=== PATIENT | male | born 1960 | race Caucasian/White ===

== ENCOUNTER 2024-02-23 17:10 | Observation (INO) ==
--- NOTE | 2024-02-23 17:30 | XRay Report ---
XR chest 1V not portable HISTORY: 63 years-old Male Chest pain, nonspecific COMPARISON: None TECHNIQUE: AP view of the chest FINDINGS: Cardiac silhouette is upper limits of normal in size. Large hiatal hernia. No pneumothorax or pleural effusion. The lungs are clear. Bones appear intact. IMPRESSION: 1. No acute process of the chest. 2. Large hiatal hernia. ACT 112: Negative or not required by law. The above report was generated using voice recognition software. It may contain grammatical, syntax o r spelling errors. Electronically signed by: Matthew Crandall M.D. 02/23/2024 5:29 PM
[2024-02-23 17:47] LABS: Basophils # (auto) 0.06 K/uL (0.00-0.20); Basophils % (auto) 0.7 %; Eosinophils # (auto) 0.05 K/uL (0.00-0.50); Eosinophils % (auto) 0.5 %; Hematocrit (blood only) 41.2 % (42.0-52.0); Immature Granulocytes # (auto) 0.05 K/uL (0.01-0.20); Immature Granulocytes % (auto) 0.5 %; Lymphocytes % (auto) 28.2 %; Mean Corpuscular Hemoglobin 30.4 pg (25.0-34.0); Mean Corpuscular Volume 89.6 fL (80.0-100.0); Mean Platelet Volume 9.2 fL (9.4-12.4); Monocytes # (auto) 1.03 K/uL (0.11-0.59); Monocytes % (auto) 11.2 %; Neutrophils # (auto) 5.43 K/uL (1.40-6.50); Neutrophils % (auto) 58.9 %; Platelet Count 280 K/uL (130-400); RDW Coefficient of Variation 13.2 % (11.5-14.5); RDW Standard Deviation 43.4 fL (36.4-46.3); White Blood Count 9.22 K/ul (4.8-10.8)
--- NOTE | 2024-02-23 18:01 | Emergency Department Note ---
Impression & Plan Atrial fibrillation with rapid ventricular response, Chest pain, Hypokalemia ED Provider Note NAME: JORGE ALBERTO VALDEZ AGE: 63 SEX: M : 1960 ARRIVES VIA: Ambulance INFORMANT: Patient ED PROVIDER(S): Chico Anderson DO CHIEF COMPLAINT: syncope HPI: Patient is a 63-year-old male who presents to the ER for a syncopal episode. Patient notes that he drinks several beers earlier today. He was drinking up in a box and then started sweating and he put his head down and he passed out. He denies any headache or change in vision. No chest pain or shortness of breath preceding or following the episode. No belly pain, nausea, vomiting or diarrhea. No dysuria, urgency or frequency. No other exacerbating or remitting factors. Patient notes he has never had this before. provides additional history and notes that the right bundle branch block is old. ADDITIONAL HISTORY OBTAINED: Per HPI Chronic Medical/Social Conditions Affecting Care: Per HPI PAST MEDICAL HISTORY:See Below PAST SURGICAL HISTORY:See Below FAMILY HISTORY:See Below SOCIAL HISTORY:See Below HOME MEDICATIONS:See Below ALLERGIES:See Below VITALS:See Below PHYSICAL EXAMINATION: GENERAL: Sitting up in bed, alert, well appearing, well nourished, no distress, non-toxic, smell of alcohol on breath EYE EXAM: normal conjunctiva. PERRL and EOM's grossly intact. OROPHARYNX: no exudate, no erythema, lips, buccal mucosa, and tongue normal and mucous membranes are moist NECK: supple, no nuchal rigidity, no adenopathy, non-tender LUNGS: Clear to auscultation. Normal chest wall mechanics HEART: Irregular irregular, S1 normal and S2 normal ABDOMEN: abdomen soft, non-tender, normo-active bowel sounds, no masses, no rebound or guarding. BACK: Back is symmetrical on inspection and there is no deformity, no midline tenderness, no CVA tenderness. SKIN: no rashes and no bruising UPPER EXTREMITIES: upper extremities are grossly normal. LOWER EXTREMITIES: No pitting edema. NEURO EXAM: Normal sensorium, cranial nerves II-XII grossly intact, normal speech, no gross weakness of arms, no gross weakness of legs. MEDICAL DECISION MAKING: Patient is a 63-year-old male who presents to the ER for syncopal episode. IV was established medicos obtained. Labs show no significant leukocytosis or anemia. INR unremarkable. BMP with a mild hyponatremia at 132. Mild hypokalemia 3.4. LFTs bilirubin was unremarkable. Troponin was negative. Alcohol mildly elevated at 80. Chest x-ray was clean. There is no trauma. He did have a witnessed syncopal episode. Upon arrival he is found to be slightly hypotensive with systolic pressures in the 90s. He is given 2 L of IV fluids. EKG was consistent with new onset A-fib. Heart rate eventually trended up to the 120s. He was given a dose of Lopressor. Monitor closely and discussed case with the hospitalist for further evaluation management treatment of his syncopal episode in combination with new onset A-fib with RVR. Consults/Care Managements Discussions: Per [facility] Triage Nursing notes reviewed. Limited review of prior medical records performed Vital Signs: reviewed and remarkable for hypotensive and tachycardic Differential diagnosis: Differential diagnosis includes etiologies such as vasovagal event, infection, hypoglycemia, electrolyte abnormalities, cardiac sources, intracerebral event, toxicologic, neurologic, as well as others were entertained. ER treatment provided: See below Diagnostics interpreted by me include EKG and cardiac monitoring as listed below: -Cardiac Monitoring: An order was placed for continuous cardiac monitoring. The monitor shows a rate of 101 with AFIB rhythm. -ECG: A-fib rate of 108 Right bundle branch block QTc 487 T wave inversion in the septal leads -Laboratory studies:Interpreted by me as stated above in MDM and shown below. Imaging studies: Xrays: As interpreted by me: Portable AP upright 1 view of the chest shows no focal infiltrate CTs show: none Procedures:none Critical Care: I have personally spent 32 minutes of critical care time in the direct management of this patient. This includes bedside care, interpretation of diagnostic studies, and testing, discussion with consultants, patient, and family members, and other required patient management activities. This 32 minutes is in excess of all separately billable procedures. Past Med/Surg History Problem List (Updated 02/23/24 @ 21:57 by Chico Anderson DO) Hypokalemia (Acute) Chest pain (Acute) Atrial fibrillation with rapid ventricular response (Acute) Social History Smoking Status: Former smoker Tobacco Type: Cigarettes Feels Safe at Home: Yes Allergies Allergies Allergy/AdvReac Type Severity Reaction Status Date / Time cephalexin [From Keflex] Allergy Hives Unverified 02/23/24 20:18 ciprofloxacin [From Cipro] AdvReac Joint Pain Unverified 02/23/24 20:18 Home Meds Home Medications Medication Instructions Recorded Confirmed aspirin 81 mg tablet,delayed 81 mg PO QAM 02/23/24 02/23/24 release food supplemt, lactose-reduced 1 ea PO QAM 02/23/24 02/23/24 losartan 100 1 tab PO QAM 02/23/24 02/23/24 mg-hydrochlorothiazide 25 mg tablet omeprazole 20 mg capsule,delayed 20 mg PO QAM 02/23/24 02/23/24 release Results & Data (ED) Vital Signs Vital Signs - 24 hr 02/23/24 17:12 02/23/24 17:26 02/23/24 17:26 Temperature 37.4 C Temperature Source Oral Pulse Rate 111 H 112 H Pulse Rate [Apical] Pulse Rate from SpO2 Sensor Pulse Rhythm [Apical] Respiratory Rate 20 16 Respiratory Effort / Characteristics Non-Labored Spontaneous Respiratory Depth Normal Respiratory Pattern Regular Blood Pressure 123/81 Blood Pressure [Right Arm] Blood Pressure Mean 95 Blood Pressure Mean [Right Arm] Blood Pressure Position Semi-fowlers Blood Pressure Position [Right Arm] Pulse Oximetry 98 99 Oxygen Delivery Method Room Air Room Air Room Air Sepsis Recent Fever Within 48 Hours No Sepsis New/Unexplained Change in Mental Status N/A Sepsis Action Taken by Nursing No Action Required 02/23/24 17:26 02/23/24 17:45 02/23/24 17:57 Temperature Temperature Source Pulse Rate 112 H 107 H Pulse Rate [Apical] 113 H Pulse Rate from SpO2 Sensor 109 H Pulse Rhythm [Apical] Irregular Respiratory Rate 16 15 Respiratory Effort / Characteristics Non-Labored Respiratory Depth Normal Respiratory Pattern Blood Pressure 91/68 L Blood Pressure [Right Arm] 99/73 L Blood Pressure Mean 74 Blood Pressure Mean [Right Arm] 81 Blood Pressure Position Blood Pressure Position [Right Arm] Pulse Oximetry 98 98 Oxygen Delivery Method Room Air Sepsis Recent Fever Within 48 Hours Sepsis New/Unexplained Change in Mental Status Sepsis Action Taken by Nursing 02/23/24 18:12 02/23/24 18:15 02/23/24 18:30 Temperature Temperature Source Pulse Rate 111 H 112 H Pulse Rate [Apical] 111 H Pulse Rate from SpO2 Sensor 100 H 103 H Pulse Rhythm [Apical] Irregular Respiratory Rate 12 17 17 Respiratory Effort / Characteristics Non-Labored Spontaneous Respiratory Depth Normal Respiratory Pattern Regular Blood Pressure 111/82 101/75 Blood Pressure [Right Arm] 94/74 L Blood Pressure Mean 88 82 Blood Pressure Mean [Right Arm] 80 Blood Pressure Position Blood Pressure Position [Right Arm] Semi-fowlers Pulse Oximetry 99 98 98 Oxygen Delivery Method Room Air Room Air Sepsis Recent Fever Within 48 Hours Sepsis New/Unexplained Change in Mental Status Sepsis Action Taken by Nursing 02/23/24 18:45 02/23/24 19:00 02/23/24 19:00 Temperature Temperature Source Pulse Rate 104 H 113 H Pulse Rate [Apical] 113 H Pulse Rate from SpO2 Sensor 109 H Pulse Rhythm [Apical] Regular Respiratory Rate 18 17 17 Respiratory Effort / Characteristics Non-Labored Spontaneous Respiratory Depth Normal Respiratory Pattern Regular Blood Pressure 111/75 112/82 Blood Pressure [Right Arm] 112/82 Blood Pressure Mean 85 91 Blood Pressure Mean [Right Arm] 92 Blood Pressure Position Blood Pressure Position [Right Arm] Semi-fowlers Pulse Oximetry 99 98 97 Oxygen Delivery Method Room Air Room Air Room Air Sepsis Recent Fever Within 48 Hours Sepsis New/Unexplained Change in Mental Status Sepsis Action Taken by Nursing 02/23/24 19:30 02/23/24 19:42 02/23/24 20:00 Temperature Temperature Source Pulse Rate 108 H 109 H 108 H Pulse Rate [Apical] Pulse Rate from SpO2 Sensor 113 H 109 H 102 H Pulse Rhythm [Apical] Respiratory Rate 13 27 H 14 Respiratory Effort / Characteristics Respiratory Depth Respiratory Pattern Blood Pressure 102/76 108/80 111/82 Blood Pressure [Right Arm] Blood Pressure Mean 83 89 86 Blood Pressure Mean [Right Arm] Blood Pressure Position Blood Pressure Position [Right Arm] Pulse Oximetry 98 99 99 Oxygen Delivery Method Room Air Room Air Sepsis Recent Fever Within 48 Hours Sepsis New/Unexplained Change in Mental Status Sepsis Action Taken by Nursing 02/23/24 20:58 Temperature Temperature Source Pulse Rate Pulse Rate [Apical] Pulse Rate from SpO2 Sensor Pulse Rhythm [Apical] Respiratory Rate 14 Respiratory Effort / Characteristics Non-Labored Spontaneous Respiratory Depth Normal Respiratory Pattern Regular Blood Pressure Blood Pressure [Right Arm] 112/85 Blood Pressure Mean Blood Pressure Mean [Right Arm] 94 Blood Pressure Position Blood Pressure Position [Right Arm] Semi-fowlers Pulse Oximetry 99 Oxygen Delivery Method Room Air Sepsis Recent Fever Within 48 Hours Sepsis New/Unexplained Change in Mental Status Sepsis Action Taken by Nursing Laboratory Data 02/23/24 17:20 02/23/24 17:20 Lab Results 02/23/24 02/23/24 Range/Units 17:20 18:43 WBC 9.22 (4.8-10.8) K/ul RBC 4.60 L (4.70-6.10) M/uL Hgb 14.0 (14.0-18.0) g/dl Hct 41.2 L (42.0-52.0) % MCV 89.6 (80.0-100.0) fL MCH 30.4 (25.0-34.0) pg MCHC 34.0 (32.0-36.0) g/dL RDW Std Deviation 43.4 (36.4-46.3) fL RDW Coeff of Lizandro 13.2 (11.5-14.5) % Plt Count 280 (130-400) K/uL MPV 9.2 L (9.4-12.4) fL Immature Gran % (Auto) 0.5 % Neut % (Auto) 58.9 % Lymph % (Auto) 28.2 % Hall % (Auto) 11.2 % Eos % (Auto) 0.5 % Baso % (Auto) 0.7 % Neut # (Auto) 5.43 (1.40-6.50) K/uL Lymph # (Auto) 2.60 (1.20-3.40) K/uL Hall # (Auto) 1.03 H (0.11-0.59) K/uL Eos # (Auto) 0.05 (0.00-0.50) K/uL Baso # (Auto) 0.06 (0.00-0.20) K/uL Immature Gran # (Auto) 0.05 (0.01-0.20) K/uL PT 10.2 (9.0-12.0) Seconds INR 0.9 (0.9-1.1) APTT 25 (21-31) Seconds PTT Ratio 0.9 Sodium 132 L (136-145) mmol/L Potassium 3.4 L (3.5-5.1) mmol/L Chloride 98 (98-107) mmol/L Carbon Dioxide 22 (21-32) mmol/L Anion Gap 12 H (3-11) BUN 13 (6-23) mg/dl Creatinine 0.93 (0.6-1.4) mg/dl Est Cr Clr Drug Dosing 89.2 ml/min Est GFR ( Amer) 100.9 ml/min Est GFR (Non-Af Amer) 87.1 ml/min BUN/Creatinine Ratio 14.0 (10-20) Glucose 112 H (70-99(Fasting)) mg/dl Calcium 8.8 (8.6-10.3) mg/dl Magnesium 1.9 (1.7-2.4) mg/dl Total Bilirubin 0.6 (0.2-1.0) mg/dl AST 24 (13-39) U/L ALT 26 (7-52) U/L Alkaline Phosphatase 43 (34-104) U/L Troponin I High Sens 3.8 (0-20) pg/ml Total Protein 6.9 (6.0-8.3) gm/dl Albumin 4.4 (3.4-5.0) gm/dl Globulin 2.5 (2.5-4.0) gm/dl Albumin/Globulin Ratio 1.8 (0.9-2) Ethyl Alcohol mg/dL 79.9 H (<10.0) mg/dl Administered Medications Potassium Chloride/Sodium Chloride (Normal Saline W/20 Meq Kcl) 20 meq in 1,000 mls @ 100 mls/hr IV .Q10H JANEY Stop: 02/24/24 06:29 Last Admin: 02/23/24 21:08 Dose: 100 mls/hr Documented By: MARCELO Magnesium Sulfate/Dextrose (Magnesium Sulfate / D5w) 1 gm in 100 mls @ 50 mls/hr IV ONE ONE Stop: 02/23/24 22:40 Last Admin: 02/23/24 21:10 Dose: 50 mls/hr Documented By: MARCELO Discontinued Medications Sodium Chloride (Nss) 1,000 mls @ 999 mls/hr IV .Q1H1M JANEY Stop: 02/23/24 20:00 Last Admin: 02/23/24 19:11 Dose: 999 mls/hr Documented By: Infusion: 02/23/24 19:10 Dose: Infused Documented By: Admin: 02/23/24 18:09 Dose: 999 mls/hr Documented By: MARCELO Metoprolol Tartrate (Metoprolol Tartrate 1 Mg/Ml Vial) 2.5 mg IV NOW STA Stop: 02/23/24 19:27 Last Admin: 02/23/24 19:40 Dose: 2.5 mg Documented By: DARRELL Potassium Chloride (Potassium Chloride Crtab 20 Meq Tabcr) 40 meq PO NOW STA Stop: 02/23/24 20:13 Last Admin: 02/23/24 21:06 Dose: 40 meq Documented By: MARCELO Imaging Data Radiologist's Impression: Chest X-Ray 02/23/24 17:18 XR chest 1V not portable HISTORY: 63 years-old Male Chest pain, nonspecific COMPARISON: None TECHNIQUE: AP view of the chest FINDINGS: Cardiac silhouette is upper limits of normal in size. Large hiatal hernia. No pneumothorax or pleural effusion. The lungs are clear. Bones appear intact. IMPRESSION: 1. No acute process of the chest. 2. Large hiatal hernia. ACT 112: Negative or not required by law. The above report was generated using voice recognition software. It may contain grammatical, syntax or spelling errors. Electronically signed by: Matthew Crandall M.D. 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
[2024-02-23 18:02] LABS: Albumin Globulin Ratio 1.8 (0.9-2); Albumin Level 4.4 gm/dl (3.4-5.0); Bilirubin,Total 0.6 mg/dl (0.2-1.0); Calcium 8.8 mg/dl (8.6-10.3); Creatinine Clr Calc Pharmacy 89.2 ml/min; Est GFR (African American) 100.9 ml/min; Est GFR (Non-African American) 87.1 ml/min; Globulin 2.5 gm/dl (2.5-4.0); Potassium 3.4 mmol/L (3.5-5.1); Total Protein 6.9 gm/dl (6.0-8.3)
[2024-02-23 18:08] LABS: Troponin I High Sensitivity 3.8 pg/ml (0-20)
[2024-02-23] MEDS: SODIUM CHLORIDE 0.9% 1,000 ML IV SCH (18:09)
[2024-02-23 18:13] LABS: INR 0.9 (0.9-1.1); Partial Thromboplastin Ratio 0.9; Partial Thromboplastin Time 25 Seconds (21-31); Prothrombin Time 10.2 Seconds (9.0-12.0)
[2024-02-23] MEDS: METOPROLOL TARTRATE 1 MG/ML VIAL IV STA (19:40)
[2024-02-23 20:15] LABS: Magnesium 1.9 mg/dl (1.7-2.4)
--- NOTE | 2024-02-23 20:42 | History & Physical Report ---
Date of Service February 23, 2024 Assessment & Plan (1) Syncope: (2) Atrial fibrillation with rapid ventricular response: (3) Dehydration: (4) Hiatal hernia: (5) Hypokalemia: (6) Hypertension: (7) GERD (gastroesophageal reflux disease): (8) Hyponatremia: (9) Alcohol intoxication: Plan Syncopal episode- The patient did have loss of bladder control, but his significant other who was right beside him, reports that he did not have seizure-like activity CT scan head without contrast was negative Accompanying symptoms to be addressed below: Hypokalemia, atrial fibrillation with RVR, mild alcohol intoxication, and mild dehydration. All of which likely contributed to the syncopal episode. Consult neurology Atrial fibrillation with RVR/right bundle branch block/hypertension- The patient will be admitted to telemetry for serial cardiac enzymes, serial EKG's, cardiac rhythm monitoring and a 2-D echocardiogram with Dopplers. Initial troponin was 3.8, with follow-up pending Patient is usually on losartan and HCTZ, both of which will be held He was given Lopressor 2.5 mg IV, Klor-Con 40 mEq p.o., magnesium sulfate 1 g IV, and normal saline + KCl 20 mEq at 100 mL/h x 1 L He was started on heparin drip standard dosing without bolus per protocol He is unaware of any family history of irregular heartbeats, but reports that his father had a stroke at age 62, and maternal grandfather with Consulting cardiology in the a.m. Electrolyte disturbances- Potassium 3.4, to receive Klor-Con 40 mEq p.o. and IV fluids as noted Hyponatremia, with sodium level 132 Holding lisinopril and HCTZ for now, and repeat laboratories in a.m. GERD/hiatal hernia- Typically takes Prilosec daily, which will be formulary changed to pantoprazole 40 mg daily Alcohol intoxication- Alcohol level 79.9 Patient did not appear to be significantly intoxicated Likely contributed to dehydration, electrolyte disturbances, and possible holiday heart with syncopal episode History of Present Illness Chief Complaint: The patient was at the [employer] game, developed significant sweats in the backseat area, put his head down because he felt little dizzy, and then his reported that he passed out including loss of urinary control for about 30 seconds. He was not confused when she rates his head back up again, and was then taken to the emergency department for assessment. Primary Care Provider: Darien Blankenship MD The patient is a 63-year-old male with a past medical history including GERD, hiatal hernia, and hypertension. He presents to the emergency department after a syncopal episode, that was preceded by significant sweats, and loss of bladder control and loss of consciousness for about 30 seconds. He was then brought to the emergency department for assessment. He reports having several beers earlier in the day. In the emergency department he was found to be in atrial fibrillation with RVR in the 110-120 range, received 1 L normal saline and Lopressor 2.5 mg IV, and was then referred for evaluation to the [facility] service for admission. Allergies Allergy/AdvReac Type Severity Reaction Status Date / Time cephalexin [From Keflex] Allergy Hives Unverified 02/23/24 20:18 ciprofloxacin [From Cipro] AdvReac Joint Pain Unverified 02/23/24 20:18 Home Medications Medication Instructions Recorded Confirmed Type aspirin 81 mg tablet,delayed 81 mg PO QAM 02/23/24 02/23/24 History release food supplemt, lactose-reduced 1 ea PO QAM 02/23/24 02/23/24 History losartan 100 1 tab PO QAM 02/23/24 02/23/24 History mg-hydrochlorothiazide 25 mg tablet omeprazole 20 mg capsule,delayed 20 mg PO QAM 02/23/24 02/23/24 History release Past Med/Surg History Problem List (Updated 02/24/24 @ 04:17 by Anam Napier MD) Alcohol intoxication Hyponatremia Dehydration Syncope GERD (gastroesophageal reflux disease) Hypertension Hiatal hernia Hypokalemia (Acute) Chest pain (Acute) Atrial fibrillation with rapid ventricular response (Acute) Social History Smoking Status: Former smoker Tobacco Type: Cigarettes Feels Safe at Home: Yes Review of Systems Review of Systems: The patient denies chest pain, palpitations, shortness of breath, dyspnea on exertion, cough, lower extremity swelling, sore throat, fevers, chills, nausea, vomiting, diarrhea , constipation, abdominal pain, pelvic pain, blood in urine or stool, dysuria, urinary frequency or urgency, rash, abnormal bruising or bleeding, imbalance, focal weakness, numbness or tingling in arms or legs, generalized arthralgias or myalgias, back or neck pain, or night sweats. The review of systems is otherwise negative other than for that already noted above, and at least 10 systems have been reviewed. Physical Exam Physical Exam: The patient is awake, alert and oriented 3, well developed and well nourished, normocephalic and atraumatic, lying in bed and in no acute distress. HEENT--PERRL, EOMI, mucous membranes and oropharynx mildly dry. Neck--supple. No JVD. No bruits. Thyroid normal, trachea midline, no adenopathy. Heart--irregularly irregular. No murmurs, rubs or gallops. Lungs--clear bilaterally, no respiratory distress, no accessory muscle use. Abdomen--normal bowel sounds and soft. Nontender. Nondistended, no hernias or masses, no organomegaly. Extremities--no cyanosis or clubbing. No edema. Dermatologic--normal skin turgor, normal color, no abnormal lymph nodes, no rash. Neurologic--cranial nerves II through XII grossly intact. Rheumatologic--normal range of motion. Psychiatric--normal affect. Results & Data Results & Data Vital Signs (Past 12 Hours) Vital Signs Temp Pulse Pulse Resp BP BP Pulse Ox 02/23/24 20:00 108 H 14 111/82 99 02/23/24 19:42 109 H 27 H 108/80 99 02/23/24 19:30 108 H 13 102/76 98 02/23/24 19:00 113 H 17 112/82 97 02/23/24 19:00 113 H 17 112/82 98 02/23/24 18:45 104 H 18 111/75 99 02/23/24 18:30 112 H 17 101/75 98 02/23/24 18:15 111 H 17 111/82 98 02/23/24 18:12 111 H 12 94/74 L 99 02/23/24 17:57 107 H 02/23/24 17:45 112 H 15 91/68 L 98 02/23/24 17:26 113 H 16 99/73 L 98 02/23/24 17:26 112 H 16 99 02/23/24 17:26 98 02/23/24 17:12 37.4 C 111 H 20 123/81 O2 Del Method 02/23/24 20:00 Room Air 09/21/24 19:42 02/23/24 19:30 Room Air 02/23/24 19:00 Room Air 02/23/24 19:00 Room Air 02/23/24 18:45 Room Air 02/23/24 18:30 02/23/24 18:15 Room Air 02/23/24 18:12 Room Air 02/23/24 17:57 02/23/24 17:45 02/23/24 17:26 Room Air 02/23/24 17:26 Room Air 02/23/24 17:26 Room Air 02/23/24 17:12 Room Air Laboratory Results Laboratory Results WBC 9.22 K/ul (4.8-10.8) 02/23/24 17:20 RBC 4.60 M/uL (4.70-6.10) L 02/23/24 17:20 Hgb 14.0 g/dl (14.0-18.0) 02/23/24 17:20 Hct 41.2 % (42.0-52.0) L 02/23/24 17:20 MCV 89.6 fL (80.0-100.0) 02/23/24 17:20 MCH 30.4 pg (25.0-34.0) 02/23/24 17:20 MCHC 34.0 g/dL (32.0-36.0) 02/23/24 17:20 RDW Std Deviation 43.4 fL (36.4-46.3) 02/23/24 17:20 RDW Coeff of Lizandro 13.2 % (11.5-14.5) 02/23/24 17:20 Plt Count 280 K/uL (130-400) 02/23/24 17:20 MPV 9.2 fL (9.4-12.4) L 02/23/24 17:20 Immature Gran % (Auto) 0.5 % 02/23/24 17:20 Neut % (Auto) 58.9 % 02/23/24 17:20 Lymph % (Auto) 28.2 % 02/23/24 17:20 Ventura % (Auto) 11.2 % 02/23/24 17:20 Eos % (Auto) 0.5 % 02/23/24 17:20 Baso % (Auto) 0.7 % 02/23/24 17:20 Neut # (Auto) 5.43 K/uL (1.40-6.50) 02/23/24 17:20 Lymph # (Auto) 2.60 K/uL (1.20-3.40) 02/23/24 17:20 Ventura # (Auto) 1.03 K/uL (0.11-0.59) H 02/23/24 17:20 Eos # (Auto) 0.05 K/uL (0.00-0.50) 02/23/24 17:20 Baso # (Auto) 0.06 K/uL (0.00-0.20) 02/23/24 17:20 Immature Gran # (Auto) 0.05 K/uL (0.01-0.20) 02/23/24 17:20 PT 10.2 Seconds (9.0-12.0) 02/23/24 17:20 INR 0.9 (0.9-1.1) 02/23/24 17:20 APTT 25 Seconds (21-31) 02/23/24 17:20 PTT Ratio 0.9 02/23/24 17:20 Sodium 132 mmol/L (136-145) L 02/23/24 17:20 Potassium 3.4 mmol/L (3.5-5.1) L 02/23/24 17:20 Chloride 98 mmol/L (98-107) 02/23/24 17:20 Carbon Dioxide 22 mmol/L (21-32) 02/23/24 17:20 Anion Gap 12 (3-11) H 02/23/24 17:20 BUN 13 mg/dl (6-23) 02/23/24 17:20 Creatinine 0.93 mg/dl (0.6-1.4) 02/23/24 17:20 Est Cr Clr Drug Dosing 89.2 ml/min 02/23/24 17:20 Est GFR ( Amer) 100.9 ml/min 02/23/24 17:20 Est GFR (Non-Af Amer) 87.1 ml/min 02/23/24 17:20 BUN/Creatinine Ratio 14.0 (10-20) 02/23/24 17:20 Glucose 112 mg/dl (70-99(Fasting)) H 02/23/24 17:20 Calcium 8.8 mg/dl (8.6-10.3) 02/23/24 17:20 Magnesium 1.9 mg/dl (1.7-2.4) 02/23/24 17:20 Total Bilirubin 0.6 mg/dl (0.2-1.0) 02/23/24 17:20 AST 24 U/L (13-39) 02/23/24 17:20 ALT 26 U/L (7-52) 02/23/24 17:20 Alkaline Phosphatase 43 U/L (34-104) 02/23/24 17:20 Troponin I High Sens 3.8 pg/ml (0-20) 02/23/24 17:20 Total Protein 6.9 gm/dl (6.0-8.3) 02/23/24 17:20 Albumin 4.4 gm/dl (3.4-5.0) 02/23/24 17:20 Globulin 2.5 gm/dl (2.5-4.0) 02/23/24 17:20 Albumin/Globulin Ratio 1.8 (0.9-2) 02/23/24 17:20 Ethyl Alcohol mg/dL 79.9 mg/dl (<10.0) H 02/23/24 18:43 Impressions Chest X-Ray 02/23/24 17:18 XR chest 1V not portable HISTORY: 63 years-old Male Chest pain, nonspecific COMPARISON: None TECHNIQUE: AP view of the chest FINDINGS: Cardiac silhouette is upper limits of normal in size. Large hiatal hernia. No pneumothorax or pleural effusion. The lungs are clear. Bones appear intact. IMPRESSION: 1. No acute process of the chest. 2. Large hiatal hernia. ACT 112: Negative or not required by law. The above report was generated using voice recognition software. It may contain grammatical, syntax or spelling errors. Electronically signed by: Matthew Crandall M.D. 02/23/2024 5:[address] 02/23/24 20:18 Exam(s): CT HEAD Without Contrast EXAM: CT Head Without Intravenous Contrast CLINICAL HISTORY: Reason for exam: syncope. TECHNIQUE: Axial computed tomography images of the head/brain without intravenous contrast. CTDI is 37.49 mGy and DLP is 625.8 mGy-cm. Automated exposure control was utilized for the study. A dose lowering technique was utilized adhering to the principles of ALARA. COMPARISON: No relevant prior studies available. FINDINGS: Brain: Unremarkable. No hemorrhage. No significant white matter disease. No edema. Ventricles: Unremarkable. No ventriculomegaly. Bones/joints: Unremarkable. No acute fracture. Soft tissues: Mild soft tissue swelling over the left superior scalp. Sinuses: Unremarkable as visualized. No acute sinusitis. Mastoid air cells: Unremarkable as visualized. No mastoid effusion. IMPRESSION: No evidence of acute intracranial pathology. Electronically signed by: Maci Mejía MD 02/23/24 22:09 PM Code Status & VTE Plan Code Status Full code VTE Prophylaxis Plan VTE Prophylaxis will be ordered: Yes PG Care Time/CCT Total # of Minutes Spent Total Time Spent with Patient: Total time spent is greater than 50% in coordination of care (as documented) at patient's floor/unit and/or counseling patient: Coding Level of Care Code 51708 INT INP/OBS CARE 3/75MIN Diagnoses Syncope R55 Atrial fibrillation with rapid ventricular response I48.91 Dehydration E86.0 Hiatal hernia K44.9 Hypokalemia E87.6 Hypertension I10 GERD (gastroesophageal reflux disease) K21.9 Hyponatremia E87.1 Alcohol intoxication F10.929
[2024-02-23] MEDS: POTASSIUM CHLORIDE CRTAB 20 MEQ TABCR PO STA (21:06)
[2024-02-23] MEDS: NSS + 20MEQ KCL 20 MEQ/1,000 ML BAG IV SCH (21:08)
[2024-02-23] MEDS: MAGNESIUM SULFATE / D5W 1 GM/100 ML BAG IV ONE (21:10)
--- NOTE | 2024-02-23 22:10 | CT Scan Report ---
Exam(s): CT HEAD Without Contrast EXAM: CT Head Without Intravenous Contrast CLINICAL HISTORY: Reason for exam: syncope. TECHNIQUE: Axial computed tomography images of the head/brain without intravenous contrast. CTDI is 37.49 mGy and DLP is 625.8 mGy-cm. Automated exposure control was utilized for the study. A dose lowering technique was utilized adhering to the principles of ALARA. COMPARISON: No relevant prior studies available. FINDINGS: Brain: Unremarkable. No hemorrhage. No significant white matter disease. No edema. Ventricles: Unremarkable. No ventriculomegaly. Bones/joints: Unremarkable. No acute fracture. Soft tissues: Mild soft tissue swelling over the left superior scalp. Sinuses: Unremarkable as visualized. No acute sinusitis. Mastoid air cells: Unremarkable as visualized. No mastoid effusion. IMPRESSION: No evidence of acute intracranial pathology. Electronically signed by: Maci Mejía MD 02/23/24 22:09 PM
[2024-02-23] MEDS: Heparin IV Adult Wt-Based Standard *NO* INITIAL Bolus Protocol IV STA (23:52)
[2024-02-23] MEDS: HEPARIN SODIUM/DEXTROSE 25,000 UNITS/500 ML BAG IV SCH (23:52)
[2024-02-24] MEDS ORDERED: ACETAMINOPHEN 325 MG TAB PO PRN (01:40)
[2024-02-24] MEDS ORDERED: ONDANSETRON INJ 2 MG/ML 2 ML VIAL IV PRN (01:40)
--- NOTE | 2024-02-24 04:32 | Billing Data ---
Date of Service February 24, 2024 Coding Level of Care Code 29982 INT INP/OBS CARE
[2024-02-24 05:53] LABS: Basophils # (auto) 0.04 K/uL (0.00-0.20); Basophils % (auto) 0.5 %; Eosinophils # (auto) 0.02 K/uL (0.00-0.50); Eosinophils % (auto) 0.3 %; Hematocrit (blood only) 36.4 % (42.0-52.0); Hemoglobin 12.8 g/dl (14.0-18.0); Immature Granulocytes # (auto) 0.05 K/uL (0.01-0.20); Immature Granulocytes % (auto) 0.6 %; Lymphocytes # (auto) 1.43 K/uL (1.20-3.40); Lymphocytes % (auto) 18.1 %; Mean Corpuscular Hgb Conc 35.2 g/dL (32.0-36.0); Mean Corpuscular Volume 88.1 fL (80.0-100.0); Mean Platelet Volume 9.4 fL (9.4-12.4); Monocytes # (auto) 0.88 K/uL (0.11-0.59); Monocytes % (auto) 11.2 %; Neutrophils # (auto) 5.46 K/uL (1.40-6.50); Neutrophils % (auto) 69.3 %; Platelet Count 238 K/uL (130-400); RDW Coefficient of Variation 13.2 % (11.5-14.5); RDW Standard Deviation 42.4 fL (36.4-46.3); Red Blood Count 4.13 M/uL (4.70-6.10); White Blood Count 7.88 K/ul (4.8-10.8)
[2024-02-24 05:56] LABS: Albumin Level 3.7 gm/dl (3.4-5.0); BUN Creatinine Ratio 16.4 (10-20); Calcium 8.3 mg/dl (8.6-10.3); Creatinine Clr Calc Pharmacy 123.9 ml/min; Est GFR (African American) 118.5 ml/min; Est GFR (Non-African American) 102.3 ml/min; Phosphorus 2.4 mg/dl (2.5-4.9); Potassium 3.9 mmol/L (3.5-5.1)
[2024-02-24 06:17] LABS: ANTI-Xa, UFH(UnfractionatedHep 0.38 IU/ml (0.3-0.7)
--- NOTE | 2024-02-24 08:18 | Neurology Consultation ---
Date of Consultation February 24, 2024 Assessment & Plan (1) Alcohol intoxication: History of Present Illness Attending Physician: Jayce Crowder History of Present Illness pt this morning feeling well. CT head negative. trending troponin. pt with hypotensive events in setting of alcohol intoxication. no focal weakness. wants to go home. admission HPI: The patient was at the [facility] football game, developed significant sweats in the backseat area, put his head down because he felt little dizzy, and then his reported that he passed out including loss of urinary control for about 30 seconds. He was not confused when she rates his head back up again, and was then taken to the emergency department for assessment. Primary Care Provider: Darien Blankenship MD The patient is a 63-year-old male with a past medical history including GERD, hiatal hernia, and hypertension. He presents to the emergency department after a syncopal episode, that was preceded by significant sweats, and loss of bladder control and loss of consciousness for about 30 seconds. He was then brought to the emergency department for assessment. He reports having several beers earlier in the day. In the emergency department he was found to be in atrial fibrillation with RVR in the 110-120 range, received 1 L normal saline and Lopressor 2.5 mg IV, and [facility] then [facility]. Allergies Allergy/AdvReac Type Severity Reaction Status Date / Time cephalexin [From Keflex] Allergy Hives Unverified 02/23/24 20:18 ciprofloxacin [From Cipro] AdvReac Joint Pain Unverified 02/23/24 20:18 Home Medications Medication Instructions Recorded Confirmed Type aspirin 81 mg tablet,delayed 81 mg PO QAM 02/23/24 02/23/24 History release food supplemt, lactose-reduced 1 ea PO QAM 02/23/24 02/23/24 History losartan 100 1 tab PO QAM 02/23/24 02/23/24 History mg-hydrochlorothiazide 25 mg tablet omeprazole 20 mg capsule,delayed 20 mg PO QAM 02/23/24 02/23/24 History release Patient History Social History Smoking Status: Current some day smoker Tobacco Type: Cigars Second Hand Exposure: No; Do You Dip or Chew Tobacco: No; Hx Alcohol Use: Yes Alcohol type: beer Hx Substance Use: No Preferred Language: Indonesian Communication Ability: Effective Casting Director Required: No Beliefs That Will Affect Care: None Current Living Situation: Spouse Current Living Situation Comment: lives in a house with Feels Safe at Home: Yes Assistive Devices: Glasses Exam (Neuro) Physical Exam: HEENT: normocephalic grossly Neuro: Mental: AOx4, fluent speech, normal comprehension, no apraxia, no L/R confusion, no neglect CN: PERRL, Full EOM, symmetric face, midline T/U/P, grossly full ROM neck Motor: No abnormal movements, normal tone, 5/5 t/o bilaterally Coord: intact FNT b/l DTR: 2+ sym b/l Impression:63 yo male with likely cardiogenic syncopal event in setting of hypotension, alcohol intoxication, dehydration. Recommendations: no further work up needed from neurology. not much to add from neurology. finish cardiac work up. will sign off. call again if new question. Chart reviewed I have spent more than 50% educating patient about potential diagnosis and neurological evaluation and coordinating care with patient's treatment team. Total time spent (including chart review and coordination of care): 45 min (this includes chart review). Results & Data Vital Signs (Past 12 Hours) Vital Signs Temp Pulse Pulse Resp BP BP Pulse Ox 02/24/24 07:41 108 H 02/24/24 07:29 36.9 C 110 H 18 121/86 99 02/24/24 04:12 113 H 02/24/24 04:00 02/24/24 04:00 36.8 C 107 H 16 117/75 99 02/23/24 22:00 113 H 18 115/95 97 02/23/24 21:52 107 H 123/67 02/23/24 21:46 117 H 02/23/24 21:30 117 H 17 128/87 02/23/24 21:00 22 108/88 98 02/23/24 20:58 14 112/85 99 02/23/24 20:45 103 H 19 99 O2 Del Method 02/24/24 07:41 02/24/24 07:29 Room Air 02/24/24 04:12 02/24/24 04:00 Room Air 02/24/24 04:00 Room Air 02/23/24 22:00 Room Air 02/23/24 21:52 02/23/24 21:46 02/23/24 21:30 02/23/24 21:00 02/23/24 20:58 Room Air 02/23/24 20:45 PG Care Time/CCT Total # of Minutes Spent Total Time Spent with Patient: Total time spent is greater than 50% in coordination of care (as documented) at patient's floor/unit and/or counseling patient: Coding Level of Care Code 26080 IN/OBS CONSULT LVL 3,45M Diagnoses Alcoholic intoxication without complication F10.920 Complication of substance-induced condition: uncomplicated (1) Alcohol intoxication Complication of substance-induced condition: uncomplicated Qualified Code(s): F10.920 - Alcohol use, unspecified with intoxication, uncomplicated
[2024-02-24] MEDS: ASPIRIN 81 MG ECTAB PO SCH (08:22)
[2024-02-24] MEDS: METOPROLOL TARTRATE 1 MG/ML VIAL IV STA (10:50)
[2024-02-24] MEDS: METOPROLOL TARTRATE 50 MG TAB PO SCH ×2 (11:00→11:42)
--- NOTE | 2024-02-24 11:17 | XCELERA ---
[id number]
--- NOTE | 2024-02-24 12:20 | Electrocardiogram Report ---
Test Reason : Blood Pressure : */* mmHG Vent. Rate : 108 BPM Atrial Rate : * BPM P-R Int : * ms QRS Dur : 148 ms QT Int : 364 ms P-R-T Axes : * 227 -9 degrees QTcB Int : 487 ms Atrial fibrillation with rapid ventricular response Right bundle branch block Inferior infarct , age undetermined Abnormal ECG No previous ECGs available Confirmed by Bony Gillis ([id number]) on 02/24/2024 12:20:04 PM Referred By: REFERRED SELF Confirmed By: Bony Gillis
--- NOTE | 2024-02-24 12:25 | Electrocardiogram Report ---
Test Reason : Blood Pressure : */* mmHG Vent. Rate : 112 BPM Atrial Rate : 97 BPM P-R Int : * ms QRS Dur : 130 ms QT Int : 314 ms P-R-T Axes : * 258 -19 degrees QTcB Int : 428 ms Atrial fibrillation with rapid ventricular response Right bundle branch block Inferior infarct (cited on or before 23-Feb-2024) Abnormal ECG When compared with ECG of 23-Feb-2024 17:13, (unconfirmed) No significant change was found Confirmed by Bony Gillis ([id number]) on 02/24/2024 12:25:22 PM Referred By: REFERRED SELF Confirmed By: Bony Gillis
--- NOTE | 2024-02-24 12:37 | Cardiology Consultation ---
Date of Consultation February 24, 2024 Assessment & Plan (1) Atrial fibrillation with rapid ventricular response: -May be secondary to his alcohol intoxication. -Agree with intravenous heparin for now. -Would add intravenous and oral beta-blockers. -[id number] score is 1 based on hypertension. No long-term anticoagulation indicated currently. -Will require long-term anticoagulation when he reaches the age of 65. -Suggests he establishes cardiac care closer to home. -May need to long-term event monitor versus a loop recorder. -Fortunately his high-sensitivity troponins are normal despite a rapid ventricular response. (2) Syncope: -Likely vasovagal as he had preceding diaphoresis. -No heart block seen on EKG or telemetry. -No further evaluation necessary at this time. History of Present Illness Attending Physician: Jayce Crowder History of Present Illness Mr. Dukes is a 63-year-old male admitted yesterday with new onset atrial fibrillation and a rapid ventricular response. This consultation was ordered to assist in his cardiac management. The patient was in his usual state of health until yesterday when tailgating at [facility]. The patient had the abrupt onset of diaphoresis and then suffered a syncopal episode. There was loss of urinary continence. 911 was called and the patient was found to be in atrial fibrillation with a rapid ventricular response. He was transported to the hospital for further care. At no time has the patient experienced palpitations. He has no prior history of atrial fibrillation. The patient does admit to drinking 5 beers during the tailgate event. His potassium was low on initial presentation at 3.4. 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 He has never experienced exertional chest pain or limiting dyspnea. He further denies syncope, presyncope, PND, orthopnea, lower extremity edema, and claudication. Currently, patient is resting comfortably in bed without complaints. Past medical and surgical history 1. Hypertension 2. Right bundle branch block 3. GERD 4. Hiatal hernia Social history and lives with his in the [place] area. Works in a [email or web address] company No tobacco Social alcohol Family history Mother at 87 from renal carcinoma Father at 92 from "old age." No early coronary artery disease Review of systems A 10 point review of systems was undertaken and negative except that scribed above. Allergies Allergy/AdvReac Type Severity Reaction Status Date / Time cephalexin [From Keflex] Allergy Hives Unverified 02/23/24 20:18 ciprofloxacin [From Cipro] AdvReac Joint Pain Unverified 02/23/24 20:18 Home Medications Medication Instructions Recorded Confirmed Type aspirin 81 mg tablet,delayed 81 mg PO QAM 02/23/24 02/23/24 History release food supplemt, lactose-reduced 1 ea PO QAM 02/23/24 02/23/24 History losartan 100 1 tab PO QAM 02/23/24 02/23/24 History mg-hydrochlorothiazide 25 mg tablet omeprazole 20 mg capsule,delayed 20 mg PO QAM 02/23/24 02/23/24 History release Patient History Social History Smoking Status: Current some day smoker Tobacco Type: Cigars Second Hand Exposure: No; Do You Dip or Chew Tobacco: No; Hx Alcohol Use: Yes Alcohol type: beer Hx Substance Use: No Preferred Language: Chinese Communication Ability: Effective Operations Vocational Instructor Required: No Beliefs That Will Affect Care: None Current Living Situation: Spouse Current Living Situation Comment: lives in a house with Feels Safe at Home: Yes Assistive Devices: Glasses Results & Data Vital Signs (Past 12 Hours) Vital Signs Temp Pulse Pulse Pulse Resp BP BP 02/24/24 11:13 104 H 139/82 02/24/24 10:50 115 H 127/86 02/24/24 10:48 36.7 C 115 H 16 127/86 02/24/24 07:41 108 H 02/24/24 07:29 36.9 C 110 H 18 121/86 02/24/24 04:12 113 H 02/24/24 04:00 02/24/24 04:00 36.8 C 107 H 16 117/75 Pulse Ox O2 Del Method 02/24/24 11:13 02/24/24 10:50 02/24/24 10:48 97 Room Air 02/24/24 07:41 02/24/24 07:29 99 Room Air 02/24/24 04:12 02/24/24 04:00 Room Air 02/24/24 04:00 99 Room Air Laboratory Results Potassium level on presentation was 3.4 with a follow-up value of 3.9. Initial high-sensitivity troponin was 3.8 with a follow-up value of 3.0. Alcohol level was 79.9 (normal less than 10). Diagnostic Findings Echocardiogram notes normal left ventricular systolic function with ejection fraction of 55 to 60%. There was no valvular pathology. EKG notes atrial fibrillation with a rapid ventricular response and incomplete right bundle branch block. Chest x-ray shows no acute disease but evidence of a large hiatal hernia. PG Care Time/CCT Total # of Minutes Spent Total Time Spent with Patient: Total time spent is greater than 50% in coordination of care (as documented) at patient's floor/unit and/or counseling patient: Coding Level of Care Code 10862 IN/OBS CONSULT LVL 4,60M Diagnoses Atrial fibrillation with rapid ventricular response I48.91 Syncope R55
--- NOTE | 2024-02-24 22:50 | Hospitalist Progress Note ---
Date of Service February 24, 2024 Assessment & Plan (1) Syncope: (2) Atrial fibrillation with rapid ventricular response: (3) Dehydration: (4) Hiatal hernia: (5) Hypokalemia: (6) Hypertension: (7) GERD (gastroesophageal reflux disease): (8) Hyponatremia: (9) Alcohol intoxication: Plan Syncopal episode- The patient did have loss of bladder control, but his significant other who was right beside him, reports that he did not have seizure-like activity CT scan head without contrast was negative Accompanying symptoms to be addressed below: Hypokalemia, atrial fibrillation with RVR, mild alcohol intoxication, and mild dehydration. All of which likely contributed to the syncopal episode. Consult neurology Atrial fibrillation with RVR/right bundle branch block/hypertension- The patient will be admitted to telemetry for serial cardiac enzymes, serial EKG's, cardiac rhythm monitoring and a 2-D echocardiogram with Dopplers. Initial troponin was 3.8, with follow-up 3.o Patient is usually on losartan and HCTZ, both of which will be held Now on lopressor 50 mg PO q6h. He was started on heparin drip standard dosing without bolus per protocol He is unaware of any family history of irregular heartbeats, but reports that his father had a stroke at age 62, and maternal grandfather with Possible discharge in AM if HR is rate controlled. Electrolyte disturbances- Potassium 3.4, to receive Klor-Con 40 mEq p.o. and IV fluids as noted Hyponatremia, with sodium level 132 Holding lisinopril and HCTZ for now Potassium now 3.9. GERD/hiatal hernia- Typically takes Prilosec daily, which will be formulary changed to pantoprazole 40 mg daily Alcohol intoxication- Alcohol level 79.9 Patient did not appear to be significantly intoxicated Likely contributed to dehydration, electrolyte disturbances, and possible holiday heart with syncopal episode Admission and Anticipated Discharge Date Admission Date: February 23, 2024 Subjective Patient reports doing well. He has no new complaints. Hoping to be discharged soon. Review of Systems Review of Systems: All systems reviewed & are unremarkable except as noted in HPI & below Physical Exam Physical Exam: The patient is awake, alert and oriented 3 HEENT--PERRL, EOMI, mucous membranes and oropharynx mildly dry. Neck--supple. No JVD. No bruits. Thyroid normal, trachea midline, no adenopathy. Heart--irregularly irregular. No murmurs, rubs or gallops. Lungs--clear bilaterally, no respiratory distress, no accessory muscle use. Abdomen--normal bowel sounds and soft. Nontender. Nondistended, no hernias or masses, no organomegaly. Extremities--no cyanosis or clubbing. No edema. Results & Data Results & Data Vital Signs (Past 12 Hours) Vital Signs Temp Pulse Pulse Resp BP BP BP 02/24/24 19:55 37.2 C 98 H 18 132/86 02/24/24 15:20 36.9 C 107 H 18 131/80 02/24/24 14:05 97 H 02/24/24 11:13 104 H 139/82 Pulse Ox O2 Del Method 02/24/24 19:55 98 Room Air 02/24/24 15:20 97 Room Air 02/24/24 14:05 02/24/24 11:13 PG Care Time/CCT Total # of Minutes Spent Total Time Spent with Patient: Total time spent is greater than 50% in coordination of care (as documented) at patient's floor/unit and/or counseling patient: Coding Level of Care Code 80818 SUB INP/OBS CARE 2/35MIN Diagnoses Syncope R55 Atrial fibrillation with rapid ventricular response I48.91 Dehydration E86.0 Hiatal hernia K44.9 Hypokalemia E87.6 Hypertension I10 GERD (gastroesophageal reflux disease) K21.9 Hyponatremia E87.1 Alcoholic intoxication without complication F10.920 Complication of substance-induced condition: uncomplicated (9) Alcohol intoxication Complication of substance-induced condition: uncomplicated Qualified Code(s): F10.920 - Alcohol use, unspecified with intoxication, uncomplicated
[2024-02-25 02:42] VITALS: RESP 18
[2024-02-25 06:57] LABS: Basophils # (auto) 0.06 K/uL (0.00-0.20); Basophils % (auto) 0.9 %; Eosinophils # (auto) 0.03 K/uL (0.00-0.50); Eosinophils % (auto) 0.4 %; Hemoglobin 13.4 g/dl (14.0-18.0); Immature Granulocytes # (auto) 0.03 K/uL (0.01-0.20); Immature Granulocytes % (auto) 0.4 %; Lymphocytes # (auto) 1.97 K/uL (1.20-3.40); Lymphocytes % (auto) 29.4 %; Mean Corpuscular Hemoglobin 31.1 pg (25.0-34.0); Mean Corpuscular Hgb Conc 35.3 g/dL (32.0-36.0); Mean Corpuscular Volume 88.2 fL (80.0-100.0); Monocytes % (auto) 10.4 %; Neutrophils # (auto) 3.92 K/uL (1.40-6.50); Neutrophils % (auto) 58.5 %; Platelet Count 238 K/uL (130-400); RDW Coefficient of Variation 13.3 % (11.5-14.5); RDW Standard Deviation 43.5 fL (36.4-46.3); Red Blood Count 4.31 M/uL (4.70-6.10); White Blood Count 6.71 K/ul (4.8-10.8)
[2024-02-25 07:18] LABS: Albumin Level 3.8 gm/dl (3.4-5.0); BUN Creatinine Ratio 15.9 (10-20); Calcium 8.8 mg/dl (8.6-10.3); Creatinine Clr Calc Pharmacy 131.7 ml/min; Est GFR (African American) 121.6 ml/min; Est GFR (Non-African American) 104.9 ml/min; Phosphorus 2.3 mg/dl (2.5-4.9); Potassium 3.5 mmol/L (3.5-5.1)
[2024-02-25 07:43] LABS: ANTI-Xa, LMWH(Low Molecular Wt 0.62 IU/ML (< 0.10)
[2024-02-25] MEDS: METOPROLOL TARTRATE 50 MG TAB PO SCH (08:13)
[2024-02-25] MEDS: POTASSIUM CHLORIDE CRTAB 20 MEQ TABCR PO STA (11:26)
[2024-02-25 15:21] VITALS: TEMP 99.3; O2SAT 99
--- NOTE | 2024-02-25 15:22 | Cardiology Progress Note ---
Date of Service February 25, 2024 Assessment & Plan (1) Atrial fibrillation with rapid ventricular response: (2) Syncope: (3) Hypertension: Plan ASSESSMENT/PLAN: 1. Atrial fibrillation: Persistent. Asymptomatic. Heart rate improved with metoprolol 50 mg p.o. 4 times daily. Discussed the diagnosis in detail. Discussed treatment options such as rate control, rhythm control, cardioversion, ablation. Recommended transesophageal echo and cardioversion which should be a vailable tomorrow as he ate today. He plans on discussing with his PCP as he was also considering being discharged home with close follow-up. Recommend anticoagulation for stroke risk reduction. Recommend Eliquis 5 mg twice daily. Recommended that he avoid alcohol as alcohol could precipitate A-fib. There is a chance he may spontaneously convert but the true onset of the A-fib is difficult to know as he is asymptomatic. 2. Syncope: Etiology uncertain. Could have been related to A-fib with RVR. Recommended that he not drive. Recommend further monitoring such as a 30-day event monitor in the outpatient setting. He plans on following up with his PCP and a local physical security specialist in this regard. 3. Hypertension: Blood pressure has been reasonably controlled while here. Continue beta-yan as above. 4. Disposition: He plans on discussing further with his PCP. I was later notified by nursing staff and Dr. Machuca of the primary hospitalist service that he decided to go home. He assured me that if he left today, that he would not drive. Recommend very close follow-up with his PCP and a local physical security specialist. If he has not had a TSH done recently, recommend checking a TSH. Plan of care discussed with Dr. [facility] service. Admission and Anticipated Discharge Date Admission Date: February 23, 2024 Subjective Patient was seen earlier this afternoon. Initial consultation was performed yesterday by Dr. Gillis. His and 2 friends were present at the bedside. He denies palpitations. He has not had any further syncope or near syncope. He denies chest pain, shortness of breath, edema, melena, hematochezia, or chhaya turia. He inquired about cardioversion. He also asked if he could go home and be followed up closely with his PCP who has been in contact with him several times throughout the day today. Physical Exam Physical Exam: Gen.: No acute distress. Alert and oriented. HEENT: Anicteric sclera. Neck: No JVD. Cardiac: Irregularly irregular. Normal S1-S2. No murmurs, rubs, or gallops. Pulmonary: Clear to auscultation bilaterally without wheezes, rales, or rhonchi. Abdomen: Soft, nontender, nondistended, with normoactive bowel sounds. No bruits noted. Extremities: 2+ radial pulses bilaterally. 2+ posterior tibialis pulses bilaterally. No edema or cyanosis. Right lower extremity varicose veins. Psychiatric: Affect appears appropriate. Results & Data Vital Signs (Past 12 Hours) Vital Signs Temp Pulse Pulse Resp BP Pulse Ox O2 Del Method 02/25/24 14:51 111 H 02/25/24 10:56 36.7 C 91 H 18 116/79 98 Room Air 02/25/24 07:36 82 02/25/24 07:33 36.9 C 90 18 121/88 99 Room Air Laboratory Results Laboratory Results - last 24 hr 02/25/24 06:00 WBC 6.71 RBC 4.31 L Hgb 13.4 L Hct 38.0 L MCV 88.2 MCH 31.1 MCHC 35.3 RDW Std Deviation 43.5 RDW Coeff of Lizandro 13.3 Plt Count 238 MPV 10.0 Immature Gran % (Auto) 0.4 Neut % (Auto) 58.5 Lymph % (Auto) 29.4 Cuming % (Auto) 10.4 Eos % (Auto) 0.4 Baso % (Auto) 0.9 Neut # (Auto) 3.92 Lymph # (Auto) 1.97 Cuming # (Auto) 0.70 H Eos # (Auto) 0.03 Baso # (Auto) 0.06 Immature Gran # (Auto) 0.03 Heparin Anti-Xa, LM Wt 0.62 Sodium 139 Potassium 3.5 Chloride 106 Carbon Dioxide 26 Anion Gap 7 BUN 10 Creatinine 0.63 Est Cr Clr Drug Dosing 131.7 Est GFR ( Amer) 121.6 Est GFR (Non-Af Amer) 104.9 BUN/Creatinine Ratio 15.9 Glucose 91 Calcium 8.8 Phosphorus 2.3 L Magnesium 2.0 Albumin 3.8 Diagnostic Findings Telemetry personally reviewed: Atrial fibrillation with improved heart rate but still rapid ventricular response at times. Current heart rate on telemetry 90s to low 100s. Labs reviewed and notable for normal magnesium, normal transaminase levels, mild anemia, normal potassium, normal renal function, normal high-sensitivity troponin. Echo 02/24/2024 report reviewed: Normal LV size, wall motion, systolic function. EF 60 to 65%. No significant valvular abnormalities. ECG personally reviewed 02/25/2024: A-fib 92 bpm. RBBB. Possible inferior infarct. Medications Administered Current Inpatient Medications Acetaminophen (Acetaminophen 325 Mg Tab) 650 mg PO Q4H PRN PRN Reason: Pain or Fever Stop: 03/25/24 01:39 Aspirin (Aspirin 81 Mg Ectab) 81 mg PO QAM [facility] Stop: 03/25/24 08:59 Last Admin: 02/25/24 08:12 Dose: 81 mg Heparin Sodium/Dextrose (Heparin Sodium/Dextrose) 25,000 units in 500 mls @ 29 mls/hr IV .[id number] [facility]; Protocol Stop: 03/24/24 22:59 Last Admin: 02/25/24 08:56 Dose: 1,450 units/hr, 29 mls/hr Metoprolol Tartrate (Metoprolol Tartrate 50 Mg Tab) 50 mg PO QID [facility] Stop: 03/26/24 08:59 Last Admin: 02/25/24 12:58 Dose: 50 mg Ondansetron HCl (Ondansetron Inj 2 Mg/Ml 2 Ml Vial) 4 mg IV Q6H PRN PRN Reason: Nausea Stop: 03/25/24 01:39 PG Care Time/CCT Total # of Minutes Spent Total Time Spent with Patient: Total time spent is greater than 50% in coordination of care (as documented) at patient's floor/unit and/or counseling patient: Coding Level of Care Code 61755 SUB INP/OBS CARE 3/50MIN Diagnoses Atrial fibrillation with rapid ventricular response I48.91 Syncope R55 Hypertension I10
[2024-02-25] MEDS: APIXABAN 5 MG TABLET PO ONE (15:59)
--- NOTE | 2024-02-25 16:43 | Discharge Summary ---
Discharge Summary Date of Service February 25, 2024 Principal Dx & Hospital Course #1 = Principal Diagnosis (1) Syncope: The patient did have loss of bladder control, but his significant other reports that he did not have seizure-like activity CT scan head without contrast was negative With Hypokalemia, atrial fibrillation with RVR, mild alcohol intoxication, and mild dehydration. All of which likely contributed to the syncopal episode. Consult neurology appreciated-thought was cardiogenic syncope, no further neurological workup needed no events on tele other than rapid afib as below, rates improved after starting metoprolol BPs stable Advised no driving until further evaluation and treatment of Afib (2) Atrial fibrillation with rapid ventricular response: Atrial fibrillation with RVR/right bundle branch block-rates initially in the 120s and improved to low 100s with addition of metoprolol tartrate 50mg po qid and was given IVFs. BPs stable Initial troponin was 3.8, with follow-up 3.0, no ischemic changes on ECG Patient is usually on losartan and HCTZ-HOLD now with starting metoprolol He was started on heparin drip and converted to Eliquis 5mg po bid on discharge ECHO here normal Was given IVFs and K+ replacement Seen by Cardiology who recommended MILI and cardioversion-pt [place]. Stable for discharge with rate control strategy with metoprolol tartrate 100mg po bid and Eliquis 5mg po bid Needs close f/u with Cardiology Advised avoidance of EtOH bingeing (3) Hiatal hernia: large, seen on CXR continue PPI (4) Hypertension: BPs stable with metoprolol alone HOLD losartan-HCTZ Can dc ASA 81mg daily which he was on for primary prevention since starting ELiquis (5) Hyponatremia: sodium level 132 on admission, related to HCTZ and/or EtOH use,dehydration given IVFs and held HCTZ, Na+ normal on day of discharge at 139 HOLD HCTZ on discharge f/u with PCP (6) Alcohol intoxication: Alcohol level 79.9, had 5 beers prior to admission at a [employer] football game Patient did not appear to be significantly intoxicated Likely contributed to dehydration, electrolyte disturbances, and possible holiday heart with syncopal episode Plan DVT prophylaxis-heparin gtt Dispo-stable for dc to home Discussed care with Cardiology and at bedside on day of discharge Notes For Next Care Provider Needs close f/u with Cardiology for MILI and cardioversion Medication Changes From Visit Added metoprolol tartrate 100mg po bid Added Eliquis 5mg po bid HOLD losartan-HCTZ HOLD ASA 81mg po daily Admission HPI Per Admitting Provider The patient is a 63-year-old male with a past medical history including GERD, hiatal hernia, and hypertension. He presents to the emergency department after a syncopal episode, that was preceded by significant sweats, and loss of bladder control and loss of consciousness for about 30 seconds. He was then brought to the emergency department for assessment. He reports having several beers earlier in the day. In the emergency department he was found to be in atrial fibrillation with RVR in the 110-120 range, received 1 L normal saline and Lopressor 2.5 mg IV, and [facility]. Discharge Exam Constitutional WD/WN, vitals as above Respiratory normal respiratory effort, lungs clear to auscultation Cardiovascular Rate/Rhythm: regular rate (to mild tahcycardia) and + irregularly irregular Extremities: no edema Neurologic PERRL, EOMI, accommodation nl, no face palsy, no dysarthria Psychiatric A+Ox3, euthymic affect Discharge Plan Discharge Items Patient Disposition: Home - Self-Care Reason For Visit: NEW ONSET A-FIB W/ RVR, RBBB, SYNCOPE Discharge Diagnosis: Rapid atrial fibrillation Syncope Condition on Discharge: Good Activity: As commented below Bathing: No limitations Exercise/Sports: Wait until after follow-up appointment Exercise Comment: No heavy exertion.Can do light walking Driving/Machine Use: No driving until cleared by Cardiology Non-emergency contact: Primary Care Provider and [employer] Call non-emergency contact if: you have any medication questions and your symptoms worsen Follow-up/Referrals: Darien Blankenship MD [Primary Care Provider] - (Follow up tomorrow as scheduled ) Diet: Heart Healthy Addtl Attending Provider Instructions: You were admitted after passing out likely related to having a rapid irregular heart rhythm called atrial fibrillation. You were started on a medication to slow down your heart rate called metoprolol. You were also started on a blood thinner called Eliquis to help prevent strokes and blood clots associated with atrial fibrillation. It is recommended that you have an electric cardioversion to shock your heart back to a normal rhythm after first having a trans- esophageal echocardiogram to ensure there is no blood clot in your heart. You will need to get a referral to a [employer] as soon as possible after you return home. Please HOLD off on taking your losartan-HCTZ since you were started on metoprolol which also controls blood pressure. You also can STOP the aspirin now that you are on Eliquis as a blood thinner. You should not be driving because you passed out unexpectedly. After your heart gets back to a normal rhythm, your [employer] and/or your PCP can tell you if/when it is safe to drive again. Try to stay hydrated and avoid binge alcohol use as this can contribute to development of atrial fibrillation. Pending Studies at Discharge: No Stand-Alone Forms: My [facility] [employer], Smoking Cessation Medications and DC Order Prescriptions: New Eliquis 5 mg Tablet 5 mg PO BID Qty: 60 0RF metoprolol tartrate 100 mg tablet 100 mg PO BID Qty: 60 0RF Continued omeprazole 20 mg capsule,delayed release(DR/EC) 20 mg PO QAM food supplemt, lactose-reduced Liquid 1 ea PO QAM Held aspirin 81 mg Tablet,Delayed Release (Dr/Ec) 81 mg PO QAM Hold Instructions: Resume on 03/03/24. losartan-hydrochlorothiazide 100-25 mg tablet 1 tab PO QAM Hold Instructions: Resume on 03/03/24. Discharge Orders: Discharge Order (Routine); Ordered 02/25/24 Ordered By: Aurora Gonzalez/Other Patient Handouts: Apixaban Oral Tablet, Metoprolol Oral Tablet Admission Data Admit Date/Time: 02/23/24 20:41 Attending Provider: Aurora Machuca Admit Provider: Anam Napier Primary Care Provider: Darien Blankenship Other Providers: Anam Napier; Bony Gillis; Bert Phelan Hospital Stay Data Consultations 02/23/24 19:27 ED Decision to Admit Stat 02/24/24 01:40 Consult Cardiology Routine 02/24/24 04:26 Consult Neurology Routine Diagnostic Imagining Performed 02/23/24 20:18 CT head/brain wo con Stat ECHO Pending Results Patient Have Any Pending Studies at Discharge: No Discharge Instructions Given to Patient (Per Discharging Provider) You were admitted after passing out likely related to having a rapid irregular heart rhythm called atrial fibrillation. You were started on a medication to slow down your heart rate called metoprolol. You were also started on a blood thinner called Eliquis to help prevent strokes and blood clots associated with atrial fibrillation. It is recommended that you have an electric cardioversion to shock your heart back to a normal rhythm after first having a trans-es ophageal echocardiogram to ensure there is no blood clot in your heart. You will need to get a referral to a [employer] as soon as possible after you return home. Please HOLD off on taking your losartan-HCTZ since you were started on metoprolol which also controls blood pressure. You also can STOP the aspirin now that you are on Eliquis as a blood thinner. You should not be driving because you passed out unexpectedly. After your heart gets back to a normal rhythm, your [employer] and/or your PCP can tell you if/when it is safe to drive again. Try to stay hydrated and avoid binge alcohol use as this can contribute to development of atrial fibrillation. Total Time Total Time Spent Total Time Spent (In Minutes): 35 min Total Time Includes: Examination of the Patient, Discharge Planning, Medication Reconciliation and Communication With Other Providers Coding Level of Care Code 52413 INP/OBS DISCH >30 MIN Diagnoses Syncope R55 Atrial fibrillation with rapid ventricular response I48.91 Hiatal hernia K44.9 Hypertension I10 Hyponatremia E87.1 Alcoholic intoxication without complication F10.920 Complication of substance-induced condition: uncomplicated
[2024-02-25 16:44] VITALS: BP 131/80; PULSE 110
[2024-02-26] MEDS ORDERED: APIXABAN 5 MG TABLET PO SCH (09:00)
== END 2024-02-25 17:10 | disposition home or self-care (01) ==
LOC: ED 17:10 → EDINP 17:10 → SUATTDRO 20:41 → 2S 02-24 01:40